=== PATIENT | male | born 1985 | race Caucasian/White ===

== ENCOUNTER 2021-03-15 20:01 | Emergency (ER) | payer OTHER, SELFPAY ==
[2021-03-15 20:10] VITALS: BP 143/90; PULSE 88; RESP 19; TEMP 37.1; O2SAT 98; BMI 40.1
[2021-03-15 20:40] VITALS: BP 143/90; PULSE 88; RESP 19; TEMP 37.1; O2SAT 98
--- NOTE | 2021-03-15 20:47 | HMH.EDUTC ---
[facility] [place] Clinical Impression: Vertigo Otitis media Qualifiers: Otitis media type: unspecified Laterality: right Qualified Code(s): H66.91 - Otitis media, unspecified, right ear Disposition: Home, Self-Care Condition on Discharge: Good Instructions: DI for Vertigo, Meclizine, Amoxicillin Additional Instructions: Take medication as prescribed Follow up with Family Doctor if no improvement or any worsening of symptoms Return if needed Slow steady movements when getting up from lying or sitting position when getting out of bed make sure to let your legs dangle to help with Vertigo Straight to ER if any life threatening symptoms May take several days for medication to help with Vertigo Prescriptions: Amoxicillin [Amoxicillin 875MG Tab] 875 mg PO Q12H #14 tab Transmission Status: Pending to [facility] Meclizine HCl [Meclizine 25mg Tab] 25 mg PO TID PRN #15 tab PRN Reason: Dizziness Transmission Status: Pending to [facility] methylPREDNISolone [Medrol 4mg tab] 4 mg PO DIRECTED #21 tab Transmission Status: Pending to [facility] Referrals: Provider,Referral, MD [Primary Care Provider] - As needed Forms: Work/School Release Time of Disposition: 21:13 Medical Decision Making - Cash Inquiry Pt receiving controlled substance: No Cash was queried for this patient: No Vital Signs: 03/15/21 20:10 03/15/21 20:40 Temperature 98.8 F 98.8 F Temperature Source Oral Pulse Rate 88 Pulse Rate [Right Brachial] 88 Respiratory Rate 19 19 Blood Pressure 143/90 H Blood Pressure [Right Arm] 143/90 H Blood Pressure Mean [Right Arm] 107 Blood Pressure Source [Right Arm] Automatic Cuff Blood Pressure Position [Right Arm] Sitting 02 Sat by Pulse Oximetry 98 Oxygen Delivery Method Room Air Orders (Tests/Meds): ED MEDICATIONS Discontinued Medications Generic Name Dose Route Start Last Admin Trade Name Freq PRN Reason Stop Dose Admin Amoxicillin 500 mg 03/15/21 20:47 03/15/21 20:53 Amoxicillin 500mg Capsule PO 03/15/21 20:48 500 mg ONCE ONE Administration Protocol Meclizine HCl 25 mg 03/15/21 20:47 03/15/21 20:54 Meclizine 25mg Tablet PO 03/15/21 20:48 25 mg ONCE ONE Administration Medical Decision Narrative: Patient reports has had vertigo in the past but has been awhile After medication patient reports that he is feeling better and no longer feeling dizzy patient to be dc'd home [facility] [place] - General Stated complaint: Ear Pain in both ears, vertigo Time Seen by Provider: 03/15/21 20:47 Mode of Arrival: Ambulatory Source of Information: Patient Limitations: No Limitations Description of Symptoms (Recalled from Triage Doc. by RN): PATIENT C/O EAR PAIN, DIZZINESS/VERTIGO, AND SOME SOA THAT STARTED TODAY AT 1800 HEENT Symptoms (Recalled from RN notes): Yes Resp Symptoms (Recalled from RN notes): Yes Skin Symptoms (Recalled from RN notes): No MS Symptoms (Recalled from RN notes): No Functional Status (Recalled from RN notes): WNL - History of Present Illness Provider Complaint: Patient states that he got up to get ready for work and was having pain in both ears with feeling like the right ear was stopped up. States that he went upstairs to get in the shower and he noticed he was feeling dizzy and a little off balance State that he got nervous and had some anxiety that made him feel a little short of breath and he sit down in a chair and the anxiety got better but was still having some dizziness when he would looke up or move quickly - Related Data Previous Rx's Medication Instructions Recorded Amoxicillin [Amoxicillin 875MG 875 mg PO Q12H #14 tab 03/15/21 Tab] Meclizine HCl [Meclizine 25mg Tab] 25 mg PO TID PRN #15 tab 03/15/21 methylPREDNISolone [Medrol 4mg 4 mg PO DIRECTED #21 tab 03/15/21 tab] Allergies Allergy/AdvReac Type Severity Reaction Status Date / Time No Known Allergies Allergy Verified
== END 2021-03-15 21:16 | disposition home or self-care (01) ==
PROVIDERS: Emergency Provider Nurse Practitioner
DX: R42 Dizziness and giddiness (principal); H66.91 Otitis media, unspecified, right ear; H61.21 Impacted cerumen, right ear
CPT/HCPCS: 99202; G0463